=== PATIENT | female | born 1950 | race Caucasian/White ===

== ENCOUNTER 2020-07-02 10:52 | Outpatient (REF) | payer MEDICARE, SELFPAY ==
--- NOTE | 2020-07-02 | PFT_ITS ---
Forced vital capacity normal. FEV1, [id number], and MVV are markedly decreased. Post bronchodilator therapy, there is no significant change. Total lung capacity and residual volume normal. Diffusion capacity is markedly decreased. CONCLUSION: Severe obstructive airway disorder. There is nose significant response to bronchodilator therapy. Rajesh Kwong MD MSB/MODL / [phone]
== END 2020-07-02 10:53 | disposition home or self-care (01) ==
LOC: HO.RESP 10:52
PROVIDERS: PCP Student in an Organized Health Care Education/Training Program; Visit Provider Hospitalist
DX: J43.2 Centrilobular emphysema (principal)
CPT/HCPCS: 94060; 94727; 94729

== ENCOUNTER → 2020-07-09 11:09 | Outpatient (BNVA) | payer BC, SELFPAY | PROVIDERS: PCP Student in an Organized Health Care Education/Training Program; Visit Provider Hospitalist ==

== ENCOUNTER → 2021-01-09 10:33 | Outpatient (BNVA) | payer BC, SELFPAY | PROVIDERS: PCP Student in an Organized Health Care Education/Training Program; Visit Provider Hospitalist ==

== ENCOUNTER → 2021-08-15 10:39 | Outpatient (BNVA) | payer BC, SELFPAY | PROVIDERS: PCP Student in an Organized Health Care Education/Training Program; Visit Provider Hospitalist | DX: J43.2 Centrilobular emphysema (principal) ==

== ENCOUNTER 2023-08-24 08:30 | Outpatient (REF) | payer BC, SELFPAY ==
[2023-08-24 15:25] LABS: Alanine Aminotransferase 19 U/L (0-31); Albumin Level 4.2 g/dL (3.5-5.0); Alkaline Phosphatase 79 U/L (39-117); Anion Gap 12 (12-20); Aspartate Amino Transferase 23 U/L (5-31); Bilirubin Direct 0.2 mg/dL (0.0-0.5); Bilirubin Total 0.6 mg/dL (0.0-1.0); Blood Urea Nitrogen 14 mg/dL (9-16); Calcium 9.7 mg/dL (8.4-10.2); Carbon Dioxide 26 mmol/L (22-29); Chloride 106 mmol/L (96-108); Cholesterol 272 mg/dL (<200); Estimated Glomerular Filt Rate > 60; Glucose Random 65 mg/dL (60-115); HDL Cholesterol 72 mg/dL (>40); LDL Cholesterol Calculated 179 mg/dL (<100); Potassium 3.9 mmol/L (3.3-5.1); Sodium 140 mmol/L (135-145); Total Protein 6.6 g/dL (6.5-8.0); Triglycerides 109 mg/dL (<150)
== END 2023-08-24 08:31 | disposition home or self-care (01) ==
LOC: HO.CHCLDS 08:30
PROVIDERS: Visit Provider Student in an Organized Health Care Education/Training Program
DX: I10 Essential (primary) hypertension (principal)
CPT/HCPCS: 36415; 80048; 80061; 80076

== ENCOUNTER 2023-10-21 15:01 | Outpatient (AMB) | payer BC, SELFPAY ==
--- NOTE | 2023-10-21 15:05 | A.OFFVIS_ITS ---
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 Overall she has been doing very good on the Anoro. She continues on the respiratory therapy with no significant flares. Has been going to maintenance have pulmonary rehabilitation couple times a week and has been doing well. She has been more stressed lately with her family issues causing additional stress and be more busy. She has lost some weight. Although she feels okay otherwise. Denies any chest pains or cough. The patient is scheduled to undergo a CT scan of the chest low dose CT scan to continue her yearly screening. Hopefully she will do that on Wednesday otherwise patient is without any complaints. Concerned about the cost of the Anoro. We talked about other options. At this point she'll continue on the Anoro. 07/09/2020 the patient has a telephone visit. Overall the patient has been doing about the same. She has been using the Anoro with good effect. She still having some dyspnea on exertion [id number] severity. Does get better with rest. She does get relief with her Anoro. In addition to that the patient did have her CT scan of the chest at [facility] as part of the lung cancer screening program. Otherwise everything stable when she is going to have a follow-up CT scan in 1 years time based on the letter she received. In addition to that the patient did undergo pulmonary function studies recently. We did review them here in the office. It appears that her FEV1 is 0.46 L consistent with severe COPD. At this point will be compared to her PFTs from 2016 her FEV1 is about the same if not a little better. Therefore she is able to sustain her lung capacity. Her diffusing capacity is significantly decreased. When she comes in in 6 months will do a 6 minutes walk test to assess her need for oxygen supplementation. 01/09/2021 the patient is here for a pulmonary follow-up visit. Overall the patient has been doing okay. Has been using the Anoro with good effect. She is also continuing the lung cancer screening program through [facility]. We did 1 her to have the repeat 6 minutes walk test based on the fact that her diffusing capacity significantly decreased. She did desaturate down to about 92%. The patient did not qualify for oxygen. At this point will continue with current respiratory regimen. The patient will looking to underlying pulmonary rehab. I did give her information in order to start. 08/15/2021 the patient is here for a pulmonary follow-up visit. She continues to have dyspnea on exertion moderate severity. Does get better with rest. She does get relief with the Anoro. She does not have any significant chest congestion or need for prednisone so therefore holding off on inhaled cortical steroids. She is taking part in the lung cancer screening program. She did have CT scan of the chest which was done at [facility]. She is scheduled to undergo a repeat CT scan in a year's time. Her last PFTs were back from 2020 demonstrating severe COPD. I would like her to be more active with pulmonary rehabilitation. 10/21/2023 the patient is here for a pulmonary follow-up visit patient overall has been doing okay. She continues on the Anoro inhaler. Complains of increasing dyspnea on exertion. She had been participating in pulmonary rehabilitation at [facility] for while but then the pandemic hit and she had to stop. She would like to go back. I explained to her that she will likely need to have repeat PFTs. Therefore we will request him at [facility] as well as similar easier for her to travel. And then we can have her restart pulmonary rehabilitation at [facility]. The patient is also participating in the lung cancer screening program. She will have that done at [facility]. The patient does have PFTs in 2020 which we did review. Her DLCO was decreased down to 30% predicted. Therefore, we did go for a 6 minute walk test the patient did desaturate to 88% with activity. Therefore she does qualify for oxygen. On patient would like to think about it for now. She is going to start pulmonary rehabilitation. If her oxygen starts dropping with her exercise activity then we can go ahead and order the oxygen for her. The last time she did pulmonary rehabilitation she did well on everything except when she went on a treadmill when she dropped a little bit at that time. So we will wait and see how she does and then order the oxygen accordingly. She will continue with current respiratory regimen in follow-up in 6 months. If she has any issues prior to that she will call for an earlier assessment. [facility] Medical History (Updated 10/21/23 @ 15:12 by Daniel Birmingham MD) Personal history of nicotine dependence GERD (gastroesophageal reflux disease) COPD (chronic obstructive pulmonary disease) Social History (Updated 08/15/21 @ 11:49 by Bridgett Silva PA-C) Patient Tobacco Use Status: Former Tobacco user Tobacco use type: Cigarette Years Smoked: (onset 14yo, 1ppd x 45yrs, 40pyh - quit ~ 2009) Review of Systems Const Denies night sweats ENT Denies change in voice, Denies lip swelling, Denies mouth pain, Reports nasal congestion, Reports nasal discharge and Denies tongue swelling Card Denies chest pain and Reports dyspnea on exertion Resp Reports cough and Reports dyspnea on exertion GI Denies abdominal pain Musc Denies no additional complaints Neuro Denies Neuro-related abnormal movements Psych Denies no additional complaints Moses/Lymph Denies easy bleeding and Denies lymphadenopathy Aller/Immun Denies lip swelling and Denies tongue swelling Physical Exam Vital Signs: Last Vital Signs Pulse 60 10/21/23 15:07 Pulse Ox 94 10/21/23 15:07 Oxygen Delivery Method Room Air 10/21/23 15:07 BMI result Body Mass Index 17.7 Const General: alert Neck Neck: Yes normal visual inspection, Yes full ROM and Yes no lymphadenopathy Chest Chest palpation & inspection: normal inspection of the chest Resp Auscultation: diminished lung sounds Cardio Rate: regular rate Rhythm: regular rhythm Heart sounds: S1 normal heart sound present and S2 normal heart sound present GI Palpation (GI): Soft to palpation and nontender Auscultation: normal bowel sounds Skin General skin exam: rashes and/or lesions noted Office Procedures 6 Minute Walk Time:: 15:28 SPO2 % at rest: 94 Pulse at rest: 78 SPO2 % during excercise: 88 Pulse during excercise: 90 Distance in yards walked: 100 Cristina Score: 5 Supplemental Oxygen: The patient desaturated with activ% with activity [id number] - 6 Minute Walk Assessment & Plan Assessment & Plan (1) COPD (chronic obstructive pulmonary disease): Code(s): J44.9 - Chronic obstructive pulmonary disease, unspecified Category: Medical Qualifiers: COPD type: emphysema Emphysema type: centrilobular Qualified Code(s): J43.2 - Centrilobular emphysema (2) GERD (gastroesophageal reflux disease): Code(s): K21.9 - Gastro-esophageal reflux disease without esophagitis Category: Medical Qualifiers: Esophagitis presence: without esophagitis Qualified Code(s): K21.9 - Gastro-esophageal reflux disease without esophagitis Plan continue Anoro KEON as needed Continue PPI Reflux diet at [facility] LDCT program recommend starting oxygen with activity; 2L/pulse. The patient will like to wait to see how she performs in rehab PFTs at [facility] Pulmonary rehab at [facility] F/U 6 months Orders: Orders PFT pulmonary function test Today J43.2 - Centrilobular emphysema Pulmonary Rehab Today J43.2 - Centrilobular emphysema Coding Level of Care Code Est Pt Level 4 (83217) Diagnoses Centrilobular emphysema J43.2 COPD type: emphysema Emphysema type: centrilobular Gastroesophageal reflux disease without esophagitis K21.9 Esophagitis presence: without esophagitis CPT Codes Coding ([id number]) Time Spent (min) 20
[2023-10-21 15:07] VITALS: PULSE 60; O2SAT 94; BMI 17.7
[2023-10-21 15:29] VITALS: PULSE 78; O2SAT 94
== END 2023-10-21 15:26 | disposition home or self-care (01) ==
PROVIDERS: PCP Student in an Organized Health Care Education/Training Program; Visit Provider Hospitalist
DX: J43.2 Centrilobular emphysema (principal)
CPT/HCPCS: 94618; 99214

== ENCOUNTER → 2023-10-21 15:01 | Outpatient (BNVA) | payer BC, SELFPAY | PROVIDERS: PCP Student in an Organized Health Care Education/Training Program; Visit Provider Hospitalist | DX: J43.2 Centrilobular emphysema (principal); K21.9 Gastro-esophageal reflux disease without esophagitis; Z79.899 Other long term (current) drug therapy | CPT/HCPCS: 94618 ==

== ENCOUNTER 2024-06-19 14:34 | Outpatient (AMB) | payer BC, SELFPAY ==
[2024-06-19 14:44] VITALS: BP 156/84; PULSE 80; O2SAT 92; BMI 17.5
--- NOTE | 2024-06-19 14:44 | MHC.OFFVIS ---
Vital Signs 06/19/24 14:44 Height 5 ft 2 in Weight 95 lb 14.417 oz BMI 17.5 BP 156/84 H Blood Pressure Location Rt brachial Position Sitting Pulse 80 Pulse Source Pulse Oximeter Pulse Oximetry (%) 92 Oxygen Delivery Method Room Air Intake Visit Reasons: copd Allergies fluticasone furoate [Trelegy Ellipta] Allergy (Severe, Verified 06/19/24 14:48) Flu Symptoms umeclidinium [Trelegy Ellipta] Allergy (Severe, Verified 06/19/24 14:48) Flu Symptoms vilanterol [Trelegy Ellipta] Allergy (Severe, Verified 06/19/24 14:48) Flu Symptoms Latex Allergy (Severe, Uncoded 06/19/24 14:48) Rash Steroids Allergy (Severe, Uncoded 06/19/24 14:48) Flu Symptoms HPI Comments Details: The patient is a 73-year-old woman with known history of COPD. Overall she has been doing very good on the Anoro. She continues on the respiratory therapy with no significant flares. Has been going to maintenance have pulmonary rehabilitation couple times a week and has been doing well. She has been more stressed lately with her family issues causing additional stress and be more busy. She has lost some weight. Although she feels okay otherwise. Denies any chest pains or cough. The patient is scheduled to undergo a CT scan of the chest low dose CT scan to continue her yearly screening. Hopefully she will do that on Wednesday otherwise patient is without any complaints. Concerned about the cost of the Anoro. We talked about other options. At this point she'll continue on the Anoro. 07/09/2020 the patient has a telephone visit. Overall the patient has been doing about the same. She has been using the Anoro with good effect. She still having some dyspnea on exertion [id number] severity. Does get better with rest. She does get relief with her Anoro. In addition to that the patient did have her CT scan of the chest at [facility] as part of the lung cancer screening program. Otherwise everything stable when she is going to have a follow-up CT scan in 1 years time based on the letter she received. In addition to that the patient did undergo pulmonary function studies recently. We did review them here in the office. It appears that her FEV1 is 0.46 L consistent with severe COPD. At this point will be compared to her PFTs from 2016 her FEV1 is about the same if not a little better. Therefore she is able to sustain her lung capacity. Her diffusing capacity is significantly decreased. When she comes in in 6 months will do a 6 minutes walk test to assess her need for oxygen supplementation. 01/09/2021 the patient is here for a pulmonary follow-up visit. Overall the patient has been doing okay. Has been using the Anoro with good effect. She is also continuing the lung cancer screening program through [facility]. We did 1 her to have the repeat 6 minutes walk test based on the fact that her diffusing capacity significantly decreased. She did desaturate down to about 92%. The patient did not qualify for oxygen. At this point will continue with current respiratory regimen. The patient will looking to underlying pulmonary rehab. I did give her information in order to start. 08/15/2021 the patient is here for a pulmonary follow-up visit. She continues to have dyspnea on exertion moderate severity. Does get better with rest. She does get relief with the Anoro. She does not have any significant chest congestion or need for prednisone so therefore holding off on inhaled cortical steroids. She is taking part in the lung cancer screening program. She did have CT scan of the chest which was done at [facility]. She is scheduled to undergo a repeat CT scan in a year's time. Her last PFTs were back from 2020 demonstrating severe COPD. I would like her to be more active with pulmonary rehabilitation. 10/21/2023 the patient is here for a pulmonary follow-up visit patient overall has been doing okay. She continues on the Anoro inhaler. Complains of increasing dyspnea on exertion. She had been participating in pulmonary rehabilitation at [facility] for while but then the pandemic hit and she had to stop. She would like to go back. I explained to her that she will likely need to have repeat PFTs. Therefore we will request him at [facility] as well as similar easier for her to travel. And then we can have her restart pulmonary rehabilitation at [facility]. The patient is also participating in the lung cancer screening program. She will have that done at [facility]. The patient does have PFTs in 2020 which we did review. Her DLCO was decreased down to 30% predicted. Therefore, we did go for a 6 minute walk test the patient did desaturate to 88% with activity. Therefore she does qualify for oxygen. On patient would like to think about it for now. She is going to start pulmonary rehabilitation. If her oxygen starts dropping with her exercise activity then we can go ahead and order the oxygen for her. The last time she did pulmonary rehabilitation she did well on everything except when she went on a treadmill when she dropped a little bit at that time. So we will wait and see how she does and then order the oxygen accordingly. She will continue with current respiratory regimen in follow-up in 6 months. If she has any issues prior to that she will call for an earlier assessment. 06/19/2024 the patient is here for pulmonary follow-up visit. The patient overall has been doing well. She still having dyspnea on exertion. She has had significant amount of weight loss. She says that she does eat although she is very careful with what she eats and she does not eat big meals. She has lost about 20 lb since her last PFTs in 2020. She did undergo pulmonary function studies in 11/27/2023. We did compare to her previous PFTs from 2020 it actually did not look too much different. She is really sustaining her capacity although she does have an FEV1 of 0.87 L which is severe COPD. In addition to that she does have a severe diffusion impairment but is a trend improved. Now 37% predicted. So overall she has not significantly worsened from a COPD standpoint based on her PFTs. However, with her weight loss I am concerned with muscle atrophy and increased work of breathing because of that. Therefore she needs to continue her exercise and strength strengthening exercises. Will provide a referral to a phase 2 trial from pulmonary rehabilitation at [facility]. Also give her information for online rehab. [facility] Medical History (Updated 10/21/23 @ 15:12 by Daniel Birmingham MD) Personal history of nicotine dependence GERD (gastroesophageal reflux disease) COPD (chronic obstructive pulmonary disease) Social History Patient Tobacco Use Status: Former Tobacco user Tobacco use type: Cigarette Years Smoked: (onset 14yo, 1ppd x 45yrs, 40pyh - quit ~ 2009) Review of Systems Const Denies night sweats and Reports weight loss ENT Denies change in voice, Denies lip swelling, Denies mouth pain, Reports nasal congestion, Reports nasal discharge and Denies tongue swelling Card Denies chest pain and Reports dyspnea on exertion Resp Reports cough and Reports dyspnea on exertion GI Denies abdominal pain Musc Denies no additional complaints Neuro Denies Neuro-related abnormal movements Psych Denies no additional complaints Moses/Lymph Denies easy bleeding and Denies lymphadenopathy Aller/Immun Denies lip swelling and Denies tongue swelling Physical Exam Vital Signs: Last Vital Signs Pulse 80 06/19/24 14:44 BP 156/84 H 06/19/24 14:44 Pulse Ox 92 06/19/24 14:44 Oxygen Delivery Method Room Air 06/19/24 14:44 BMI result Body Mass Index 17.5 Const General: alert Neck Neck: Yes normal visual inspection, Yes full ROM and Yes no lymphadenopathy Chest Chest palpation & inspection: normal inspection of the chest Resp Auscultation: diminished lung sounds Cardio Rate: regular rate Rhythm: regular rhythm Heart sounds: S1 normal heart sound present and S2 normal heart sound present GI Palpation (GI): Soft to palpation and nontender Auscultation: normal bowel sounds Skin General skin exam: rashes and/or lesions noted Assessment & Plan Assessment & Plan (1) COPD (chronic obstructive pulmonary disease): Code(s): J44.9 - Chronic obstructive pulmonary disease, unspecified Category: Medical Qualifiers: COPD type: emphysema Emphysema type: centrilobular Qualified Code(s): J43.2 - Centrilobular emphysema (2) GERD (gastroesophageal reflux disease): Code(s): K21.9 - Gastro-esophageal reflux disease without esophagitis Category: Medical Qualifiers: Esophagitis presence: without esophagitis Qualified Code(s): K21.9 - Gastro-esophageal reflux disease without esophagitis Plan continue Anoro KEON as needed Continue PPI Reflux diet at [facility] LDCT program recommend starting oxygen with activity; 2L/pulse. The patient will like to wait to see how she performs in rehab Start Phase 2 pulmonary rehab at [facility] F/U 6 months Orders: Orders Pulmonary Rehab Today J43.2 - Centrilobular emphysema Coding Level of Care Code Est Pt Level 4 (44786) Diagnoses Centrilobular emphysema J43.2 COPD type: emphysema Emphysema type: centrilobular Gastroesophageal reflux disease without esophagitis K21.9 Esophagitis presence: without esophagitis Time Spent (min) 17
== END 2024-06-19 15:18 | disposition home or self-care (01) ==
PROVIDERS: PCP Student in an Organized Health Care Education/Training Program; Visit Provider Hospitalist
DX: J43.2 Centrilobular emphysema (principal); K21.9 Gastro-esophageal reflux disease without esophagitis
CPT/HCPCS: 99214

== ENCOUNTER → 2024-06-19 14:34 | Outpatient (BNVA) | payer BC, SELFPAY | PROVIDERS: PCP Student in an Organized Health Care Education/Training Program; Visit Provider Hospitalist ==

== ENCOUNTER 2025-03-08 14:03 | Outpatient (AMB) | payer BC, SELFPAY ==
--- NOTE | 2025-03-08 14:10 | A.OFFVIS_ITS ---
Vital Signs 03/08/25 14:12 Height 5 ft 2 in Weight 92 lb 9.506 oz BMI 16.9 BP 142/68 H Blood Pressure Location Lt brachial Position Sitting Pulse 65 Pulse Source Pulse Oximeter Pulse Oximetry (%) 92 Oxygen Delivery Method Room Air Intake Visit Reasons: copd Mobile Ui Designer Required: No Accompanied by: Self / Same As Patient Allergies fluticasone furoate (Trelegy Ellipta) Allergy (Severe, Verified 03/08/25 14:14) Flu Symptoms umeclidinium (Trelegy Ellipta) Allergy (Severe, Verified 03/08/25 14:14) Flu Symptoms vilanterol (Trelegy Ellipta) Allergy (Severe, Verified 03/08/25 14:14) Flu Symptoms Latex Allergy (Severe, Uncoded 06/19/24 14:48) Rash Steroids Allergy (Severe, Uncoded 06/19/24 14:48) Flu Symptoms HPI Comments Details: The patient is a 74-year-old woman with known history of COPD. Overall she has been doing very good on the Anoro. She continues on the respiratory therapy with no significant flares. Has been going to maintenance have pulmonary rehabilitation couple times a week and has been doing well. She has been more stressed lately with her family issues causing additional stress and be more busy. She has lost some weight. Although she feels okay otherwise. Denies any chest pains or cough. The patient is scheduled to undergo a CT scan of the chest low dose CT scan to continue her yearly screening. Hopefully she will do that on Wednesday otherwise patient is without any complaints. Concerned about the cost of the Anoro. We talked about other options. At this point she'll continue on the Anoro. 07/09/2020 the patient has a telephone visit. Overall the patient has been doing about the same. She has been using the Anoro with good effect. She still having some dyspnea on exertion [id number] severity. Does get better with rest. She does get relief with her Anoro. In addition to that the patient did have her CT scan of the chest at [facility] as part of the lung cancer screening program. Otherwise everything stable when she is going to have a follow-up CT scan in 1 years time based on the letter she received. In addition to that the patient did undergo pulmonary function studies recently. We did review them here in the office. It appears that her FEV1 is 0.46 L consistent with severe COPD. At this point will be compared to her PFTs from 2016 her FEV1 is about the same if not a little better. Therefore she is able to sustain her lung capacity. Her diffusing capacity is significantly decreased. When she comes in in 6 months will do a 6 minutes walk test to assess her need for oxygen supplementation. 01/09/2021 the patient is here for a pulmonary follow-up visit. Overall the patient has been doing okay. Has been using the Anoro with good effect. She is also continuing the lung cancer screening program through [facility]. We did 1 her to have the repeat 6 minutes walk test based on the fact that her diffusing capacity significantly decreased. She did desaturate down to about 92%. The patient did not qualify for oxygen. At this point will continue with current respiratory regimen. The patient will looking to underlying pulmonary rehab. I did give her information in order to start. 08/15/2021 the patient is here for a pulmonary follow-up visit. She continues to have dyspnea on exertion moderate severity. Does get better with rest. She does get relief with the Anoro. She does not have any significant chest congestion or need for prednisone so therefore holding off on inhaled cortical steroids. She is taking part in the lung cancer screening program. She did have CT scan of the chest which was done at [facility]. She is scheduled to undergo a repeat CT scan in a year's time. Her last PFTs were back from 2020 demonstrating severe COPD. I would like her to be more active with pulmonary rehabilitation. 10/21/2023 the patient is here for a pulmonary follow-up visit patient overall has been doing okay. She continues on the Anoro inhaler. Complains of increasing dyspnea on exertion. She had been participating in pulmonary rehabilitation at [facility] for while but then the pandemic hit and she had to stop. She would like to go back. I explained to her that she will likely need to have repeat PFTs. Therefore we will request him at [facility] as well as similar easier for her to travel. And then we can have her restart pulmonary rehabilitation at [facility]. The patient is also participating in the lung cancer screening program. She will have that done at [facility]. The patient does have PFTs in 2020 which we did review. Her DLCO was decreased down to 30% predicted. Therefore, we did go for a 6 minute walk test the patient did desaturate to 88% with activity. Therefore she does qualify for oxygen. On patient would like to think about it for now. She is going to start pulmonary rehabilitation. If her oxygen starts dropping with her exercise activity then we can go ahead and order the oxygen for her. The last time she did pulmonary rehabilitation she did well on everything except when she went on a treadmill when she dropped a little bit at that time. So we will wait and see how she does and then order the oxygen accordingly. She will continue with current respiratory regimen in follow-up in 6 months. If she has any issues prior to that she will call for an earlier assessment. 06/19/2024 the patient is here for pulmonary follow-up visit. The patient overall has been doing well. She still having dyspnea on exertion. She has had significant amount of weight loss. She says that she does eat although she is very careful with what she eats and she does not eat big meals. She has lost about 20 lb since her last PFTs in 2020. She did undergo pulmonary function studies in 11/27/2023. We did compare to her previous PFTs from 2020 it actually did not look too much different. She is really sustaining her capacity although she does have an FEV1 of 0.87 L which is severe COPD. In addition to that she does have a severe diffusion impairment but is a trend improved. Now 37% predicted. So overall she has not significantly worsened from a COPD standpoint based on her PFTs. However, with her weight loss I am concerned with muscle atrophy and increased work of breathing because of that. Therefore she needs to continue her exercise and strength strengthening exercises. Will provide a referral to a phase 2 trial from pulmonary rehabilitation at [facility]. Also give her information for online rehab. 03/08/2025 the patient is here for pulmonary follow-up visit. Overall the patient is doing well. She continues to have some dyspnea on exertion. [id number] severity. Also has a cough. Intermittently. She continues with respiratory therapy as prescribed. She continues to maintain her weight at this time. She did pulmonary rehabilitation but she could not go back because it was too expensive. She is going to consider going to the [facility] where she can continue to exercise regularly. She does participate in the lung cancer screening program at [facility] and she should be due for CAT scan April of 2025. Her respiratory therapy appears to be effective with the Anoro. No need for inhaled corticosteroids. Otherwise the patient is doing well will follow-up in a year's time if she has any issues prior to this she can always call for an earlier assessment. [facility] Medical History (Updated 07/06/24 @ 15:50 by Daniel Birmingham MD) Advanced COPD Personal history of nicotine dependence GERD (gastroesophageal reflux disease) COPD (chronic obstructive pulmonary disease) Social History Patient Tobacco Use Status: Former Tobacco user Tobacco use type: Cigarette Years Smoked: (onset 14yo, 1ppd x 45yrs, 40pyh - quit ~ 2009) Review of Systems Const Denies night sweats ENT Denies change in voice, Denies lip swelling, Denies mouth pain, Reports nasal congestion, Reports nasal discharge and Denies tongue swelling Card Denies chest pain and Reports dyspnea on exertion Resp Reports cough and Reports dyspnea on exertion GI Denies abdominal pain Musc Denies no additional complaints Neuro Denies Neuro-related abnormal movements Psych Denies no additional complaints Moses/Lymph Denies easy bleeding and Denies lymphadenopathy Aller/Immun Denies lip swelling and Denies tongue swelling Physical Exam Vital Signs: Last Vital Signs Pulse 65 03/08/25 14:12 BP 142/68 H 03/08/25 14:12 Pulse Ox 92 03/08/25 14:12 Oxygen Delivery Method Room Air 03/08/25 14:12 BMI result Body Mass Index 16.9 Const General: alert Neck Neck: Yes normal visual inspection, Yes full ROM and Yes no lymphadenopathy Chest Chest palpation & inspection: normal inspection of the chest Resp Effort & Inspection: normal respiratory effort Auscultation: diminished lung sounds Cardio Rate: regular rate Rhythm: regular rhythm Heart sounds: S1 normal heart sound present and S2 normal heart sound present GI Palpation (GI): Soft to palpation and nontender Auscultation: normal bowel sounds Skin General skin exam: rashes and/or lesions noted Assessment & Plan Assessment & Plan (1) COPD (chronic obstructive pulmonary disease): Code(s): J44.9 - Chronic obstructive pulmonary disease, unspecified Category: Medical Qualifiers: COPD type: emphysema Emphysema type: centrilobular Qualified Code(s): J43.2 - Centrilobular emphysema (2) GERD (gastroesophageal reflux disease): Code(s): K21.9 - Gastro-esophageal reflux disease without esophagitis Category: Medical Qualifiers: Esophagitis presence: without esophagitis Qualified Code(s): K21.9 - Gastro-esophageal reflux disease without esophagitis Plan continue Anoro KEON as needed Continue PPI Reflux diet LDCT program F/U 6-12 months Coding Level of Care Code Est Pt Level 4 (99572) Complex EM visit Add On G2211 Diagnoses Centrilobular emphysema J43.2 COPD type: emphysema Emphysema type: centrilobular Gastroesophageal reflux disease without esophagitis K21.9 Esophagitis presence: without esophagitis Time Spent (min) 16
[2025-03-08 14:12] VITALS: BP 142/68; PULSE 65; O2SAT 92; BMI 16.9
--- OUTSIDE RECORDS SUMMARY | 2025-03-08 17:06 | XMS_ITS | Encounter Summary ---
Author Organization [employer] Address [address] [place] [address] Care Team Providers Care Top Cleaner Name Role Phone Yamileth Jamison MD Primary Care Provider [phone] John Sumner MD Primary Care Prov ider Encounter Details Date Type Department Care Team ([facility] st Contact Info) Description 06/12/2024 Orders Only [facility] [address] [place] [address] Provider, MD Carlene Social History Tobacco Use Types Packs/Day Years Used Date Smoking Tobacco: Former Cigarettes Smokeless Tobacco: Never Housing Stability Answer Date Recorded What is your housing situation today? I have rah osborne 02/24/[address] you li ve. Do you have problems with any of the following? None of the above 02/24/2023 Food Insecurity Answer Date Recorded Within the past 12 months, y ou worried that your food would run out before you got money to buy more: Never True 02/24/2023 Within the past 12 months,th e food you bought just didn't last and you didn't have enough money to get more: Never True Transportation Answer Date Recorded In the past 12 months, has l ack of transportation kept you from medical appts, meetings, work or from getting things needed for daily living? No 02/24/2023 Utilities Answer Date Recorded In the past 12 months, has t he electric, gas, oil or water company threatened to shut off services in your home? No 02/24/2023 Comments No Sex and Gender Information Value Date Recorded Sex Assigned at Female 03/09/2022 10:19 AM EDT Legal Sex Female 10:19 AM EDT Gender Identity Female 03/09/2022 10:19 AM EDT Sexual Orientation Straight 03/09/2022 10 :19 AM EDT documented as of this encounter Plan of Treatment Not on file documented as of this encounter Procedures Procedure Name Priority Date/Time Associated Diagnosis Comments CT LUNG SCREENING Routine 06/07/2024 12:28 PM EST documented in this encounter Results * CT Lung Screening Low dose (06/07/2024 12:28 PM EST) Anatomical Region Laterality Modality Lung Computed Tomogra phy us Historical Provider MD GRACIA CT PROCEDURES Final R esult documented in this encounter Visit Diagnoses Not on filedocumented in this encounter Care Teams Top Cleaner Relationship Specialty Start Date End Date Yamileth Jamison MD [address] [place] [phone] PCP - General Family Medicine 04/25/12 03/07/25 John Sumner MD [address] [place] [phone] PCP - General Internal Medicine 03/08/25 documented as of this encounter
--- OUTSIDE RECORDS SUMMARY | 2025-03-08 17:06 | XMS_ITS | Clinical Summary ---
Author Organization [employer] Address [address] [place] [address] Care Team Providers Care Rotary Operator Name Role Phone John Sumner MD Primary Care Prov ider Allergies Active Allergy Reactions Criticality Noted Date Comments Latex 10/13/2016 Other reaction(s): itchy Wound Dressings Hives 11/06/2022 Medications albuterol (ProAir HFA) 108 (90 Base) MCG/ACT inhaler inhale 2 puff by inhalation route every 6 hours 8 Active ascorbic acid (Vitamin C) 500 MG tablet Take 1 tablet by mouth every 12 (twelve) hours. 5 Active aspirin 81 MG EC tablet Take 1 tablet by mouth in the morning. 5 Active B Complex Vitamins (Vitamin-B Complex) tablet Take 1 tablet by mouth 1 (one) time each day. 5 Active Calcium Carbonate-Vitam in D 600-5 MG-MCG tablet Take 1 tablet by mouth 1 (one) time each day. 5 Active Diclofenac Sodium 1 % gel Apply topically every 12 (twelve) hours 2 Active latanoprost (Xalatan) 0.005 % ophthalmic solution INSTILL 1 DROP INTO LEFT EYE AT BEDTIME 2 Active Red Yeast Rice Extract 600 MG capsule Take 2 capsules by mouth 1 (one) time each day. 1 Active Anoro Ellipta 62.5-25 MCG/ACT aerosol powder Inhale 1 puff by mouth once daily 3 Active amLODIPine (Norvasc) 2.5 MG tablet TAKE 1 TABLET BY MOUTH IN THE MORNING 90 tablet 3 4 Active ibuprofen 800 MG tablet Take 1 tablet (800 mg) by mouth 3 times daily. 90 tablet 4 Active gabapentin (Neurontin) 300 MG capsule Take 1 capsule (300 mg) by mouth 3 times daily. 90 capsule 4 Active Active Problems Problem Noted Date Diagnosed Date Abnormal findings on diagnostic imaging of breas t 11/06/2022 Ductal carcinoma (CMS/HCC) 11/06/2022 Pulmonary nodules 11/21/2018 Seasonal allergic rhinitis 02/16/2017 Chronic obstructive pulmonary disease 02/16/2017 Glaucoma 10/15/2016 Osteopenia 10/13/2016 Raynaud's disease 10/13/2016 Tubular adenoma 10/13/2016 Chronic obstructive lung disease 07/30/2011 Contact dermatitis 07/30/2011 Essential hypertension 07/30/2011 Pruritic disorder 07/30/2011 Rosacea 07/30/2011 Immunizations Immunization Administration Dates Next Due COVID-19 Non-US Vaccine, Product Unknown 024 Influenza High-dose Quadriva lent Preservative Free 02/09/2022,01/16/2021 Influenza Quadrivalent Adjuvanted 03/13/2023, Influenza injectable quadriv alent IIV4 with preservative 02/02/2017,02/14/2016,02/19/2015 Influenza, High Dose Seasona l, Preservative Free 01/26/2019,02/06/2018 Influenza, IIV3, injectable 03/15/2024, 4 Influenza, Split (incl. dav[place]son f[place] surface antigen) 02/15/2013,01/22/2012 Moderna Covid-19 Vaccine 6+ Bivalent 02/19/2022 Pneumococcal Conjugate PCV 13 02/14/2016 RSV Adjuvant 03/15/2024 Tdap 02/01/2024 Zoster, live 05/07/2014 Social History Tobacco Use Types Packs/Day Years Used Date Smoking Tobacco: Former Cigarettes Smokeless Tobacco: Never Tobacco Cessation:Counseling Given: Not Answered Housing Stability Answer Date Recorded What is [...] Orientation Straight 03/09/2022 10 :19 AM EDT Last Filed Vital Signs Vital Sign Reading Time Taken Comments Blood Pressure 163/75 02/01/2024 11:09 AM EDT Pulse 53 02/01/2024 11:09 AM EDT Temperature 36.4 C (97.6 F) 02/01/2024 11:09 AM EDT Respiratory Rate 20 02/01/2024 11:09 AM EDT Oxygen Saturation 98% 01/07/2024 2:47 PM EDT Inhaled Oxygen Concentration - - Weight 45.8 kg (101 lb) 02/01/2024 11:09 AM EDT Height 157.5 cm (5' 2 ) 02/01/2024 11:09 AM EDT Body Mass Index 18.47 02/01/2024 11:09 AM EDT Plan of Treatment Health Maintenance Due Date Last Done Comments Depression Screening 1948 Alcohol/Substance Use Screening 1960 Hepatitis C Screening 1966 Zoster Vaccines (2 of 3) 07/02/2014 05/07/2014 Pneumococcal Vaccine: 50+ Years (2 of 2 - PPSV23) 04/10/2016 02/14/2016 SDOH Screening 05/19/2023 05/19/2022 COVID-19 Vaccine ( season) 2025 02/13/2023, 02/19/2022, 09/10/2021, Additional history exists Influenza Vaccine (#1) 2025 , 03/13/2023, 03/13/2023, Additional history exists Tobacco Screening 01/31/2025 02/01/2024 Lipid Panel 08/23/2028 08/24/2023, 05/10, 01/20/2021, Additional history exists DTaP/Tdap/Td Vaccines (2 - Td or Tdap) 01/31/2034 02/01/2024 Colonoscopy Discontinued 01/22/2016 Colorectal Cancer Screening Discontinued FIT DNA/Cologuard Discontinued 03/10/2024 FOBT Discontinued 03/10/2024 RSV Patients and Patients Aged 60 years or older Completed 03/15/2024 CT Colonography Discontinued FIT Discontinued HIB Vaccines Aged Out No longer eligi ble based on patient's age to complete this topic HPV Vaccines Aged Out No longer eligi ble based on patient's age to complete this topic Hepatitis A Vaccines Aged Out No long er eligible based on patient's age to complete this topic Hepatitis B Vaccines Aged Out No long er eligible based on patient's age to complete this topic IPV Vaccines Aged Out No longer eligi ble based on patient's age to complete this topic Meningococcal B Vaccine Aged Out No l onger eligible based on patient's age to complete this topic Meningococcal Vaccine Aged Out No lionel annika eligible based on patient's age to complete this topic RSV under 20 months Aged Out No longe r eligible based on patient's age to complete this topic Rotavirus Vaccines Aged Out No longer eligible based on patient's age to complete this topic Sigmoidoscopy Discontinued Procedures Procedure Name Priority Date/Time Associated Diagnosis Comments LAB COLOGUARD COLON CANCER SCREEN Routine 03/10/2024 9:06 AM EDT Encounter for screening for malignant neoplasm of colon LIPID PANEL, STANDARD Routine 08/24/2023 8:31 AM EDT Essential hypertension HM COLONOSCOPY Routine 01/22/2016 from Last 3 Months or Most Recently Relevant to Health Maintenance Results * Cologuard?? colon cancer screening (03/10/2024 9:06 AM EDT) Cologuard Result Negative Negative 03/19/20 6:07 AM [facility] [employer] (IA #:[id number]) Comment: NEGATIVE TEST RESULT. A negative Cologuard result indicates a low likelihood that a colorectal cancer (CRC) or advanced adenoma (adenomatous polyps with more advanced pre-malignant features) is present. The chance that a person with a negative Cologuard test has a colorectal cancer is less than 1 in 1500 (negative predictive value >99.9%) or has an advanced adenoma is less than 5.3% (negative predictive value 94.7%). These data are based on a prospective cross-sectional study of 10,000 individuals at average risk for colorectal cancer who were screened with both Cologuard and colonoscopy. (Jessica Jones al, N Engl J Med 2014;370(14):8469-2005) The normal value (reference range) for this assay is negative. COLOGUARD RE-SCREENING RECOMMENDATION: Periodic colorectal cancer screening is an important part of preventive healthcare for asymptomatic individuals at average risk for colorectal cancer. Following a negative Cologuard result, the [place] [employer] and U.S. Multi-Society Task Force screening guidelines recommend a Cologuard re-screening interval of 3 years. References: [place] [employer] Guideline for Colorectal Cancer Screening: https://www.cancer.org/cancer/eqozf-ipfoxr-eqtgey/aypdyopng-ddkrrmcyv-wdzjtic/ac s-rec ommendations.html.; Ghulam DK, Cherri CR, Estelle TreviñoK, Colorectal Cancer Screening: Recommendations for Physicians and Patients from the U.S. Multi-Society Task Force on Colorectal Cancer Screening , Am J Gastroenterology 2017; 112:3167-0701. TEST DESCRIPTION: Composite algorithmic analysis of stool DNA-biomarkers with hemoglobin immunoassay. Quantitative values of individual biomarkers are not reportable and are not associated with individual biomarker result reference ranges. Cologuard is intended for colorectal cancer screening of adults of either sex, 45 years or older, who are at average-risk for colorectal cancer (CRC). Cologuard has been approved for use by the U.S. FDA. The performance of Cologuard was established in a cross sectional study of average-risk adults aged 50-84. Cologuard performance in patients ages 45 to 49 years was estimated by sub-group analysis of near-age groups. Colonoscopies performed for a positive result may find as the most clinically significant lesion: colorectal cancer [4.0%], advanced adenoma (including sessile serrated polyps greater than or equal to 1cm diameter) [20%] or non- advanced adenoma [31%]; or no colorectal neoplasia [45%]. These estimates are derived from a prospective cross-sectional screening study of 10,000 individuals at average risk for colorectal cancer who were screened with both Cologuard and colonoscopy. (Jessica Jones al, N Engl J Med 2014;370(14):7785-8787.) Cologuard may produce a false negative or false positive result (no colorectal cancer or precancerous polyp present at colonoscopy follow up). A negative Cologuard test result does not guarantee the absence of CRC or advanced adenoma (pre-cancer). The current Cologuard screening interval is every 3 years. ([place] [employer] and U.S. Multi-Society Task Force). Cologuard performance data in a 10,000 patient pivotal study using colonoscopy as the reference method can be accessed at the following location: www.[employer]/results. Additional description of the Cologuard test process, warnings and precautions can be found at www.[employer].com. Stool specimen (specimen) 03/10/2024 9:06 AM EDT 03/13/2024 10:27 AM EST us Yamileth Jamison MD LAB MOLECULAR DIAGNOSTICS [facility] Final Result [employer] (CLIA #:[id number]) [address] [place] [address], * (ABNORMAL) Lipid Panel, Standard (08/24/2023 8:31 AM EDT) Triglycerides 109 <150 mg/dL [facility] Comment:Desirable Triglyceri de: less than 150 mg/dLBorderline High Triglyceride 150-199 mg/dLHigh Triglyceride: 200-499 mg/dLVery High Triglyceride: greater than or equal to 5OO mg/dL Cholesterol 272(H) <200 mg/dL [facility] Comment:Desirable Cholestero l: less than 200 mg/dLBorderline High Cholesterol: 200-239 mg/dLHigh Cholesterol: greater than 239 mg/dL LDL Cholesterol Calculated 179(H) <100 mg/dL [facility] Comment:Desirable LDL: less than 100 mg/dLNear Optimal/Above Optimal LDL: 110- 129 mg/dLBorderline High LDL: 130-159 mg/dLHigh LDL: 160-189 mg/dLVery High LDL: greater than or equal to 190 mg/dL HDL Cholesterol 72 >40 mg/dL [facility] Comment:Desirable HDL: great er than 40 mg/dL Note: This HDL assay may give artificially low results in patients with liver disease. Blood Venous blood specimen / Unknown 08/24/2023 8:31 AM EDT 08/24/2023 2:22 PM EDT Yamileth Jamison MD LAB BLOOD ORDERABLES Final Resul t [facility] [address] [place] [address] [phone] * Colonoscopy (01/22/2016) Colonoscopy Normal Normal Historical Provider HEALTH MAINTENANCE Final Result from Last 3 Months or Most Recently Relevant to Health Maintenance Insurance [employer] [place] [employer] PPO Care Teams Rotary Operator Relationship Specialty Start Date End Date BassJohn Salazar MD [address] [place] [id number] PCP - General Internal Medicine 03/08/25
--- OUTSIDE RECORDS SUMMARY | 2025-03-08 17:06 | XMS_ITS | Encounter Summary ---
Author Organization [employer] Address [address] [place] [address] Care Team Providers Care Online Community Manager Name Role Phone Yamileth Jamison MD Primary Care Provider [phone] John Sumner MD Primary Care Prov ider Reason for Visit * Reason Onset Date Comments Medication Question 01/17/2024 Appointment Request 01/17/2024 Encounter Details Date Type Department Care Team ([facility] st Contact Info) Description 01/17/2024 Telephone [facility] MEDICINE [address] [place], [place] [phone] Yamileth Jamison MD [address] [place], [place] [phone] Medication Question; Appointment Request Social History Tobacco Use Types Packs/Day Years [...] services in your home? No 02/24/2023 Comments Unknown Sex and Gender Information Value Date Recorded Sex Assigned at Female 03/09/2022 10:19 AM EDT Legal Sex Female 10:19 AM EDT Gender Identity Female 03/09/2022 10:19 AM EDT Sexual Orientation Straight 03/09/2022 10 :19 AM EDT documented as of this encounter Miscellaneous Notes * Telephone Encounter - Neida Rose RN - 01/17/2024 10:53 AM EDT Triage call Pt reports shingles pain is unbearable . Pt reports further possible eruption along the nerve pattern toward abdomen. Pt denies any drainage and has area covered and then reports is not sure if there really is a new eruption. Pt was seen 01/07/24 in [facility] and has been prescribed ibuprofen 800mg bid which Pt has been taking and reports this takes the edge off but, Pt reports is unable to go about daily activities due to the constant pain. Pt is requesting antiviral medication. Ptis offered apt today in [facility] to be seen by provider but, declines. Pt is offered [facility] [place] [facility] today but, reports already seen by Dr. Billingsley and was advised to see PCP. ASK apt 01/20/24 @ 930am. with who dx shingles accurately in the beginning. Pt is asking that this informationbe forwarded to PCP also for possible medication prescription to be able to get better pain relief till apt. 01/20/24. Pt agrees with this plan to forward information and has scheduled apt set. Home care is reviewed. Pt is advised if pain is so severe unable to wait till 01/20/24 to seek assist at [facility]. Pt will think about that. Insurance is verified as active prior to booking. Protocol Used: Shingles (Zoster) (Adult) Care Advice Discussed: * Reassurance and Education - Shingles * Shingles - Symptoms * Shingles - Treatment * Shingles - Contagiousness * Expected Course * Reasons To Call Back - Spots appear elsewhere on your body. - Severe headache occurs - Eye pain or blurred vision occurs - Fever over 100.4 F (38.0 C) - You become worse * Postherpetic Neuralgia - Treatment * Reducing the Itch - Oatmeal (Aveeno) Bath ---- Message ----- From: Karen Nicholson Sent: 01/15/2024 9:10 AM EDT To: [facility] Front Office Subject: Appointment Request Appointment Request From: Karen Nicholson With Provider: Yamileth Jamison MD [[facility]] Preferred Date Range: 01/17/2024 - 01/18/2024 Preferred Times: Any Time Reason for visit: Problem Follow-Up Visit Comments: Problem follow up for shingles increased pain * Telephone Encounter - Robbi Birmingham - 01/17/2024 9:41 AM EDT Tc from pt calling in regards to shingles, pt was seen by Dr. Billingsley for [facility] onsite 01/06 And states she doesn't feel any improvement and was advised to follow up with pcp. Pt would like a call back to discuss follow up and or medication. Please contact pt at [phone]. documented in this encounter Plan of Treatment Not on file documented as of this encounter Visit Diagnoses Not on filedocumented in this encounter Care Teams Online Community Manager Relationship Specialty Start Date End Date Yamileth Jamison MD [address] [place] [id number] PCP - General Family Medicine 04/25/12 03/07/25 John Sumner MD [address] [place] [phone] PCP - General Internal Medicine 03/08/25 documented as of this encounter
--- OUTSIDE RECORDS SUMMARY | 2025-03-08 17:06 | XMS_ITS | Encounter Summary ---
Author Organization [employer] Address [address] [place] [address] Care Team Providers Care Pan Devulcanizer Name Role Phone Yamileth Jamison MD Primary Care Provider [phone] John Sumner MD Primary Care Prov ider Reason for Visit * Reason Onset Date Comments Nurse Triage 01/05/2024 Encounter Details Date Type Department Care Team ([facility] st Contact Info) Description 01/05/2024 Telephone [facility] MEDICINE [address] [place] [address] Yamileth Jamison MD [address] [place], [place] [phone] Nurse Triage Social History Tobacco Use Types Packs/Day Years Used Date Smoking Tobacco: Former Cigarettes Smokeless Tobacco: Never Housing Stability Answer Date Recorded What is your housing situation today? I have rahhaydee osborne 02/24/[address] you [...] t he electric, gas, oil or water [employer] threatened to shut off services in your home? No 02/24/2023 Comments Unknown Sex and Gender Information Value Date Recorded Sex Assigned at Female 03/09/2022 10:19 AM EDT Legal Sex Female 10:19 AM EDT Gender Identity Female 03/09/2022 10:19 AM EDT Sexual Orientation Straight 03/09/2022 10 :19 AM EDT documented as of this encounter Miscellaneous Notes * Telephone Encounter - Neida Rose RN - 01/05/2024 11:52 AM EDT Triage call Pt reports shingles which started 12/31/23 and is continuing to be painful. Pt had tele visit with Dr. Bass at that time and was prescribed valtrex for 7 days. Pt is at end of Valtrex only two tablets left, taking ibuprofen 800mg po for good pain relief but is requesting possible extension of valtrex and is concerned about taking that much motrin. Pt reports pain is like a stabbing pain sometimes and it is so very painful consistently. TSK apt with Dr. Bass today at 300pm. Pt given information regarding postherpetic neuralgia information . Unable to verify medicare insurance due to computer error. Protocol Used: Shingles (Zoster) (Adult) Protocol-Based Disposition: See in Office or Video Visit Today or Tomorrow Video visit offered and caller accepted Positive Triage Question: * Shingles rash and onset > 72 hours ago * All higher-acuity triage questions were negative Care Advice Discussed: * Reasons To Call Back - Spots appear elsewhere on your body. - Severe headache occurs - Eye pain or blurred vision occurs - Fever over 100.4 F (38.0 C) - You become worse * Postherpetic Neuralgia - Treatment * Telephone Encounter - Robbi Birmingham - 01/05/2024 11:03 AM EDT Symptom: Rash or Redness on One Body Area Only Outcome: Talk to a nurse or provider within 15 minutes Reason: Dark blood red spots (not pink) Pt was seen by Dr. Bass 12/30 but stated symptoms are worsening. documented in this encounter Plan of Treatment Not on file documented as of this encounter Visit Diagnoses Not on filedocumented in this encounter Care Teams Pan Devulcanizer Relationship Specialty Start Date End Date Yamileth Jamison MD [address] [place] [phone] PCP - General Family Medicine 04/25/12 03/07/25 John Sumner MD [address] [place] [phone] PCP - General Internal Medicine 03/08/25 documented as of this encounter
--- OUTSIDE RECORDS SUMMARY | 2025-03-08 17:06 | XMS_ITS | Encounter Summary ---
Author Organization [employer] Address [address] [place] [address] Care Team Providers Care Strategy Director Name Role Phone Yamileth Jamison MD Primary Care Provider [phone] John Sumner MD Primary Care Prov ider Reason for Visit * Reason Onset Date Comments Created In Error 01/05/2024 Encounter Details Date Type Department Care Team ([facility] st Contact Info) Description 01/05/2024 Telephone [facility] MEDICINE [address] [place] [address] Yamileth Jamison MD [address] [place], [place] [phone] Created In Error Social History Tobacco Use Types Packs/Day Years [...] on filedocumented in this encounter Care Teams Strategy Director Relationship Specialty Start Date End Date Yamileth Jamison MD [address] [place] [phone] PCP - General Family Medicine 04/25/12 03/07/25 John Sumner MD [address] [place] [phone] PCP - General Internal Medicine 03/08/25 documented as of this encounter
--- OUTSIDE RECORDS SUMMARY | 2025-03-08 17:06 | XMS_ITS | Clinical Summary ---
Author Organization [facility] [address] [facility] Address [address] [place] [address] Phone Care Team Providers Care Pipe Finishing Supervisor Name Role Phone Latanya Blackmon MD Primary Care Provider [phone] Surgical History Surgery Date Site/Laterality Comments TONSILLECTOMY PROCEDURE: HISTORICAL TONSILLECTOMY TUBAL LIGATION PROCEDURE: HISTORICAL TUBAL LIGATION APPENDECTOMY PROCEDURE: HISTORICAL APPENDECTOMY Medical History Medical History Date Comments Chronic obstructive pulmonar y disease ([facility]/HCC V24, CMS/HCC V28) 02/16/2017 DX:Chronic obstructive pulm onary disease (HCC) Glaucoma 10/15/2016 DX:Glaucoma Osteopenia 10/13/2016 DX:Osteopenia Raynaud's disease 10/13/2016 DX:Raynaud's d isease Seasonal allergic rhinitis 02/16/2017 DX:Se asonal allergic rhinitis Tubular adenoma 10/13/2016 DX:Tubular adeno ma Family History Medical History Relation Name Comments Lung cancer Sister Relation Name Status Comments Sister Social History Tobacco Use Types Packs/Day Years Used Date Smoking Tobacco: Former Smokeless Tobacco: Never Comments Unknown Sex and Gender Information Value Date Recorded Sex Assigned at Not on file Legal Sex Female 5:40 AM EST Gender Identity Not on file Sexual Orientation Not on file Obstetrics History Plan of Treatment Health Maintenance Due Date Last Done Comments Zoster Vaccines (1 of 2) 07/02/2014 05/07/2014 Pneumococcal Vaccine: 50+ Years (2 of 2 - PPSV23, PCV20, or PCV21) 04/10/2016 02/14/2016 Falls Risk Assessment 04/12/2022 Hepatitis C Screening 04/12/2022 Osteoporosis Screening (Bone Density Screening) 04/12/2022 Social Influencers of Health Screening 04/12/2022 Depression Screening 05/10/2024 Hypertension/CHF/CAD Annual BMP Blood Test 06/07/2024 COVID-19 Vaccine ( season) 2025 03/15/2024, 02/13/2023, 02/19/2022, Additional history exists Influenza Vaccine (#1) 2025 , 03/13/2023, 02/09/2022, Additional history exists Cholesterol Screening (Lipid Panel) 08/23/2028 08/24/2023 DTaP,Tdap,and Td Vaccines (2 - Td or Tdap) 01/31/2034 02/01/2024 Colorectal Cancer Screening: FIT-DNA (Cologuard) Discontinued 03/10/2024 RSV Immunization Adult Patients Completed 03/15/2024 HIB Vaccines Aged Out No longer eligi [...] on patient's age to complete this topic MMR Vaccines Aged Out No longer eligi ble based on patient's age to complete this topic Meningococcal ACWY Vaccine Aged Out N o longer eligible based on patient's age to complete this topic Meningococcal B Vaccine Aged Out No l onger eligible based on patient's age to complete this topic RSV Immunization Patients Under 20 months Aged Out No longer eligible based on patient's age to complete this topic Varicella Vaccines Aged Out No longer eligible based on patient's age to complete this topic Insurance [facility] Care Teams Pipe Finishing Supervisor Relationship Specialty Start Date End Date Latanya Blackmon MD [address] [place] [phone] PCP - General 08/12/17
== END 2025-03-08 14:39 | disposition home or self-care (01) ==
LOC: HO.HPS 14:04
PROVIDERS: PCP Student in an Organized Health Care Education/Training Program; Visit Provider Hospitalist
DX: J43.2 Centrilobular emphysema (principal); K21.9 Gastro-esophageal reflux disease without esophagitis
CPT/HCPCS: 99214